=== PATIENT | female | born 1955 ===

== ENCOUNTER 2020-10-10 00:03 | Emergency (ER) | payer OTHER ==
[~2020-10-10] VITALS: Ht 149.9 cm; Wt 62.6 kg
[2020-10-10] MEDS ORDERED: MUCINEX DM ER1 EAC1 PO (06:28)
[2020-10-10] MEDS ORDERED: VITAMIN C WIT1000 MG PO (06:28)
[2020-10-10] MEDS ORDERED: MELATONIN10 MG PO (06:28)
[2020-10-10] MEDS ORDERED: AZITHROMYCIN500 MG PO (06:28)
[2020-10-10] MEDS ORDERED: IVERMECTIN3 MG PO (06:28)
[2020-10-10] MEDS ORDERED: VITAMIN D3-ALO1 EACH PO (06:28)
[2020-10-10] MEDS ORDERED: ACETAMINOPHEN650 M2 PO (06:28)
[2020-10-10] MEDS ORDERED: MEDROLPACK PO (06:28)
[2020-10-27] MEDS ORDERED: ACETAMINOPHEN650 M2 (14:56)
== END 2020-10-10 06:37 | disposition home or self-care (01) ==
LOC: ER 00:03
DX: U07.1 COVID-19 (principal)